=== PATIENT | female | born 1975 | race African-American/Black ===

== ENCOUNTER 2019-03-05 10:48 | Emergency (ER) | payer MEDICAID ==
[~2019-03-05] VITALS: Ht 165.1 cm; Wt 72.7 kg
[2019-03-05 11:03] VITALS: Ht 165.1 cm; Wt 72.7 kg
[2019-03-05] MEDS ORDERED: OMEPRAZOLE20 M1 PO (11:04)
[2019-03-05] MEDS ORDERED: VITAMIN B-1250 MCG PO (11:05)
[2019-03-05] MEDS ORDERED: CEREFOLIN TAB1 TAB PO (11:05)
[2019-03-05] MEDS ORDERED: ACCUPRIL10 MG PO (11:05)
[2019-03-05 11:26] LABS: BASOPHILS 0.2 % (0-2); EOSINOPHILS 0.6 % (0-7); HEMATOCRIT 37.4 % (36.0-48.0); HEMOGLOBIN 12.7 g/dL (12-16); IMMATURE GRANULOCYTES 0.2 % (0-5); LYMPHOCYTES 16.1 % (15-50); MCH 27.5 pg (26.0-34.0); MCV 81.1 fL (80.0-100.0); NEUTROPHILS 77.9 % (40-80); PLATELET COUNT 417 10x3/uL (130-400); RBC 4.61 10x6/uL (4.00-5.40); RDW 13.1 % (11.5-14.5); WBC 11.4 10x3/uL (4.8-10.8)
[2019-03-05 11:39] LABS: ALBUMIN 4.4 g/dL (3.4-5.0); ANION GAP 18.9 mmol/L (8-16); BILIRUBIN - TOTAL 0.28 mg/dL (0.2-1.3); CALCIUM 10.2 mg/dL (8.5-10.1); CREATININE - SERUM 1.2 mg/dL (0.6-1.3); POTASSIUM - SERUM 3.9 mmol/L (3.5-5.1); PROTEIN - SERUM 8.9 g/dL (6.4-8.2)
[2019-03-05] MEDS ORDERED: BENTYL 20 MG TA20 MG PO (13:43)
[2019-03-05] MEDS ORDERED: ZOFRAN ODT4 MG/UDTAB PO (13:43)
[2019-03-05 13:51] VITALS: BP 132/89
[2019-03-05 13:52] LABS: HCG URINE NEGATIVE (NEGATIVE)
[2019-03-05 13:53] LABS: APPEARANCE HAZY (CLEAR); BILIRUBIN NEGATIVE (NEGATIVE); COLOR YELLOW (YELLOW); GLUCOSE NEGATIVE (NEGATIVE); KETONE NEGATIVE (NEGATIVE); NITRITE NEGATIVE (NEGATIVE); PROTEIN 1+ mg/dL (NEGATIVE); UROBILINOGEN NORMAL (NORMAL)
[2019-03-05 13:56] LABS: BACTERIA FEW /hpf (NONE SEEN); EPITHELIAL CELLS 0-5 /hpf (0-5); MUCUS >1+ /lpf (NONE SEEN); RED CELLS - URINE 0-5 /hpf (0-5); WHITE CELLS - URINE 0-5 /hpf (0-5)
== END 2019-03-05 13:50 | disposition home or self-care (01) ==
LOC: D.ER 10:48
PROVIDERS: Family Medicine
DX: A08.4 Viral intestinal infection, unspecified (principal); I10 Essential (primary) hypertension

== ENCOUNTER → 2019-03-20 15:38 | Outpatient (CLI) | payer MEDICAID ==
[2019-03-05 11:03] VITALS: BMI 26.6
[~2019-03-20 15:38] MED LIST: ACCUPRIL10 MG PO; BENTYL 20 MG TA20 MG PO; CEREFOLIN TAB1 TAB PO; OMEPRAZOLE20 M1 PO; VITAMIN B-1250 MCG PO; ZOFRAN ODT4 MG/UDTAB PO
== END | disposition home or self-care (01) ==
LOC: D.LABREF 15:38
PROVIDERS: ATTEND Orthopaedic Surgery
DX: T14.8XXA Other injury of unspecified body region, initial encounter (principal); X58.XXXA Exposure to other specified factors, initial encounter

== ENCOUNTER → 2019-07-30 09:11 | Outpatient (CLI) | payer OTHER ==
[2019-03-05 11:03] VITALS: BMI 26.6
== END | disposition home or self-care (01) ==
LOC: D.US 09:11
PROVIDERS: ATTEND Family Medicine
DX: R10.10 Upper abdominal pain, unspecified (principal)

== ENCOUNTER → 2019-09-18 07:23 | Outpatient (CLI) | payer OTHER ==
[2019-03-05 11:03] VITALS: BMI 26.6
== END | disposition home or self-care (01) ==
LOC: D.NM 07:23
PROVIDERS: ATTEND Family Medicine
DX: K80.20 Calculus of gallbladder without cholecystitis without obstruction (principal)

== ENCOUNTER 2020-11-25 18:57 | Outpatient (CLI) | payer OTHER ==
[2019-06-02 11:42] VITALS: BMI 25.0
[~2020-11-25 18:57] MED LIST changes: +B-12 DOTS500 MCG PO; +CALCIUM 600 +1 EAC3 PO; +HYDROCODON-ACE1 EA10 PO; +MULTI-DAY VITAM1 TAB PO; +ULTRAM50 MG PO; +ZOFRAN4 MG PO
== END 2020-11-25 23:59 | disposition home or self-care (01) ==
LOC: D.MAMMO 18:57
PROVIDERS: ATTEND Family Medicine
DX: Z12.31 Encounter for screening mammogram for malignant neoplasm of breast (principal)